=== PATIENT | female | born 1985 | race Caucasian/White ===

== ENCOUNTER 2020-03-01 08:45 | Emergency (ER) | payer OTHER ==
[2020-03-01] MEDS ORDERED: DEXAMETHASONE 10 MG/ML VIAL PO STA (10:24)
[2020-03-01] MEDS ORDERED: CHERRY SYRUP 10 ML UDC PO ONE (10:24)
[2020-03-01] MEDS ORDERED: KETOROLAC 60 MG/2 ML VIAL IM STA (10:24)
--- NOTE | 2020-03-01 10:27 | ED Physician Documentation ---
PD HPI CHEST PAIN - Stated complaint Stated Complaint: L SIDE PX - Chief complaint Chief Complaint: General - History obtained from History obtained from: Patient - History of Present Illness Timing - onset: How many weeks ago (1) Timing - onset during: Rest Timing - duration: Weeks (1) Timing - details: Gradual onset, Still present Quality: Sharp, Pain Location: Left chest Radiation: No: Jaw, Neck, Back, Abdominal, Left upper extremity, Right upper extremity Improved by: Rest Worsened by: Inspiration, Movement, Palpation, Position Associated symptoms: Cough. No: Shortness of air, Diaphoresis, Nausea, Vomiting, Feeling faint / dizzy, General Weakness Similar symptoms before: Diagnosis (chest wall strain) Recently seen: Clinic - Additional information Additional information: 34-year-old female has had an upper respiratory tract infection over the past month she has been tested for COVID she has been placed on antibiotic for ear infection and is improving on all fronts. She states that her cough is improving her ear pain is improving and she is now developed some soreness to the left chest wall. She has had this previously with URI and today she is come to the emergency department because the pain was significant this morning. Review of Systems Constitutional: denies: Fever, Myalgias, Fatigue Eyes: denies: Loss of vision Ears: denies: Ear pain Nose: reports: Congestion Throat: denies: Sore throat Cardiac: reports: Chest pain / pressure. denies: Palpitations, Pedal edema, Calf pain Respiratory: reports: Cough. 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 : None HEENT: None Psych: Depression, Post traumatic stress disorder, Eating disorder Musculoskeletal: None Derm: None - Past Surgical History Past Surgical History: Yes - Present Medications Home Medications: Ambulatory Orders Medication Instructions Recorded Confirmed Sertraline HCl [Zoloft] 10 mg PO DAILY 02/17/13 02/17/13 Meloxicam 15 mg PO DAILY PRN #20 tablet 03/01/20 - Allergies Allergies/Adverse Reactions: Allergies Allergy/AdvReac Type Severity Reaction Status Date / Time acetaminophen [From Vicodin] Allergy Severe Hives Verified 03/01/20 09:08 hydrocodone bitartrate * Allergy Severe Hives Verified 03/01/20 09:08 [From Vicodin] - Social History Does the pt smoke?: No Smoking Status: Never smoker Does the pt drink ETOH?: Yes Does the pt have substance abuse?: No - Immunizations Immunizations are current?: Yes - POLST Patient has POLST: No PD ED PE NORMAL - Vitals Vital signs reviewed: Yes (hyertensive) - General General: Alert and oriented X 3, No acute distress, Well developed/nourished - HEENT HEENT: Atraumatic, PERRL, EOMI, Pharynx benign, Dentition benign, Other (er ythema along the left umbo and in the attic on the right. lichenification of the TM consistent with resolving infection ) - Neck Neck: Supple, no meningeal sign, No bony TTP - Cardiac Cardiac: RRR, No murmur - Respiratory Respiratory: No respiratory distress, Clear bilaterally, Other (There is tenderness to the chest wall laterally on the left side reproducing the symptoms the patient is complaining of. ) - Abdomen Abdomen: Soft, Non tender - Back Back: No CVA TTP, No spinal TTP - Derm Derm: Normal color, Warm and dry, No rash - Extremities Extremities: No deformity, No edema - Neuro Neuro: Alert and oriented X 3, youth leader 2-12 intact, No motor deficit, No sensory deficit, Normal speech Eye Opening: Spontaneous Motor: Obeys Commands Verbal: Oriented GCS Score: 15 - Psych Psych: Normal mood, Normal affect Results - Vitals Vitals: Vital Signs - 24 hr 03/01/20 09:04 Temperature 37.1 C Heart Rate 92 Respiratory 14 Rate Blood Pressure 127/101 H O2 Saturation 99 Oxygen O2 Source Room air - Rads (name of study) chest Radiology: Prelim report reviewed (Impression: Unremarkable portable chest plain film. No infiltrates.), EMP read indepedently, See rad report PD MEDICAL DECISION MAKING - ED course Complexity details: reviewed old records, reviewed results, considered differential, d/w patient ED course: 34-year-old female with URI this past month has improved. She has developed some chest wall pain similar to what she has had previously when she has had URI and she has some tenderness to her chest wall. She does not have any evidence of infiltrate on her chest x-ray and she appears to have resolving otitis. She is administered dexamethasone 10 mg orally and Toradol 60 mg IM. Departure - Departure Disposition: 01 Home, Self Care Clinical Impression: Costochondritis, acute Condition: Stable Instructions: ED Chest Pain Costochondritis Follow-Up: Frandy Pineda MD [Primary Care Provider] - Prescriptions: Meloxicam 15 mg PO DAILY PRN #20 tablet PRN Reason: Pain
--- NOTE | 2020-03-01 10:55 | XRAY Report ---
PROCEDURE: Chest 1 View X-Ray INDICATIONS: chest pain TECHNIQUE: One view of the chest was acquired. COMPARISON: None available. FINDINGS: Surgical changes and devices: None. Lungs and pleura: No pleural effusions or pneumothorax. Lungs are clear. Mediastinum: Mediastinal contours appear normal. Heart size is normal. Bones and chest wall: No suspicious bony lesions. Overlying soft tissues appear unremarkable. IMPRESSION: Unremarkable portable chest plain film. No infiltrates. Reviewed by: Abel Cornelius MD on 03/01/2020 9:54 AM MARIO Approved by: Abel Cornelius MD on 03/01/2020 9:54 AM FARZANA Station ID: [id number]
[2020-03-01 11:03] VITALS: BP 128/87
== END 2020-03-01 11:03 | disposition home or self-care (01) ==
LOC: ED 08:45
DX: M94.0 Chondrocostal junction syndrome [Tietze] (principal); J06.9 Acute upper respiratory infection, unspecified
CPT/HCPCS: 71045; 96372; 99283; 99284; A9270

== ENCOUNTER 2023-10-07 11:22 | Day surgery (SDC) | payer OTHER ==
[2023-10-07] MEDS: LACTATED RINGERS 1,000 ML IV ONE ×2 (11:26→13:23)
[2023-10-07 11:48] LABS: HCG UR QUAL NEGATIVE
[2023-10-07] MEDS ORDERED: PROPOFOL 500 MG/50 ML 500 MG/50 ML VIAL ONE (12:00)
--- NOTE | 2023-10-07 12:07 | ANESTHESIA ---
Pre-Anesthesia VS, & Labs - Diagnosis change in bowel habits - Procedure colonoscopy Vital Signs: Temp Pulse Resp BP Pulse Ox O2 Flow Rate 812235 C H 97 18 140/104 H 96 10/07/23 12:00 10/07/23 11:40 10/07/23 11:40 10/07/23 11:40 10/07/23 11:40 Height: 5 ft 4 in Weight (kg): 66.6 kg Body Mass Index: 25.2 BMI Classification: Overweight - NPO Other (7am) - Is Patient ?: No Home Medications and Allergies Home Medications: Ambulatory Orders Citalopram [CeleXA] 10 mg ORAL DAILY 10/06/23 Citalopram [CeleXA] 10 mg ORAL DAILY 10/06/23 Allergies/Adverse Reactions: Allergies Allergy/AdvReac Type Severity Reaction Status Date / Time acetaminophen [From Vicodin] Allergy Severe Hives Verified 10/07/23 11:56 hydrocodone bitartrate * Allergy Severe Hives Verified 10/07/23 11:56 [From Vicodin] Anes History & Medical History - Anesthetic History Anesthesia Complications: reports: Post-Operative Nausea/Vomiting - Medical History Cardiovascular: reports: None Pulmonary: reports: None Gastrointestinal: reports: Hemorrhoids, Other Urinary: reports: None Musculoskeletal: reports: None Endocrine/Autoimmune: reports: None Blood Disorders: reports: None Skin: reports: None Smoking Status: Never smoker Psychosocial: reports: Alcohol (daily 5-6 shot), Cannabis (3-4 time a week) - Surgical History Gynecologic: reports: Breast implants, LEEP (Cervical surgery) Exam General: Alert, Oriented x3 Dental: WNL Mouth Opening: Greater than 4 Fingerbreadths Neck Mobility: Normal Mallampati classification: II Thyromental Distance: greater than 6 cm Respiratory: Lungs clear Cardiovascular: Regular rate, Normal S1, Normal S2 Plan Anesthesia Type: Total IV Consent for Procedure(s) Verified and Reviewed: Yes Code Status: Attempt Resuscitation ASA classification: 2-Mild systemic disease Is this case an emergency?: No
[2023-10-07] MEDS ORDERED: LIDOCAINE-MPF 2% 5 ML VIAL ONE (12:11)
[2023-10-07] MEDS ORDERED: MIDAZOLAM 2 MG/2 ML VIAL ONE (12:11)
[2023-10-07] MEDS ORDERED: ONDANSETRON 4 MG/2 ML VIAL ONE ×2 (12:12→13:33)
[2023-10-07] MEDS ORDERED: PROPOFOL 200 MG/20 ML VIAL IVP ONE (13:01)
[2023-10-07] MEDS: ONDANSETRON 4 MG/2 ML VIAL IVP ONE (13:39)
--- NOTE | 2023-10-07 13:58 | ANESTHESIA POST OP EVALUATION ---
Anesthesia Post Eval - Post Anesthesia Eval Vitals: Last Vital Signs Temp 36.8 C 10/07/23 13:25 Pulse 95 10/07/23 13:45 Resp 16 10/07/23 13:45 BP 136/103 H 10/07/23 13:45 Pulse Ox 100 10/07/23 13:45 O2 Flow Rate CV Function Including HR & BP: Stable Pain Control: Satisfactory Nausea & Vomiting: Negative Mental Status: Baseline Respiratory Status: Airway Patent Hydration Status: Satisfactory Anesthesia Complications: None
[2023-10-07 13:59] VITALS: BP 136/103; O2SAT 100
== END 2023-10-07 11:23 | disposition home or self-care (01) ==
LOC: SDS 11:22
PROVIDERS: ATTEND Surgery
PROC: 0DBP8ZX Excision of Rectum, Via Natural or Artificial Opening Endoscopic, Diagnostic (ICD-10-PCS; 2023-10-07)
PROC: 0DBM8ZX Excision of Descending Colon, Via Natural or Artificial Opening Endoscopic, Diagnostic (ICD-10-PCS; 2023-10-07)
PROC: 0DBK8ZX Excision of Ascending Colon, Via Natural or Artificial Opening Endoscopic, Diagnostic (ICD-10-PCS; principal; 2023-10-07 12:30)
DX: R19.4 Change in bowel habit (principal); K92.1 Melena; D12.2 Benign neoplasm of ascending colon; K63.5 Polyp of colon; K64.9 Unspecified hemorrhoids
CPT/HCPCS: 45380; 45385; 81025; J7120